=== PATIENT | female | born 1965 | race Asian ===

== ENCOUNTER 2018-03-15 17:51 | Emergency (ER) | payer SELFPAY ==
[~2018-03-15] VITALS: Ht 160 cm; Wt 64.4 kg
[2018-03-15] MEDS ORDERED: IBUPROFEN 600 MG TABLET PO ONE (19:00)
[2018-03-15] MEDS ORDERED: IBUPROFEN 600 MG TABLET ONE (19:04)
--- NOTE | 2018-03-15 20:04 | NUR ---
Patient discharged to home in stable conditon. Written and verbal after care instructions given. Patient verbalizes understanding of instructions. Pt ambulated out of ER in steady gait accompanied by children. All belongings with pt. VSS. No acute distress noted.
[2018-03-15 20:05] VITALS: BP 138/66
== END 2018-03-15 20:05 | disposition home or self-care (01) ==
LOC: ER 17:55
DX: S00.83XA Contusion of other part of head, initial encounter (principal); S16.1XXA Strain of muscle, fascia and tendon at neck level, initial encounter; S29.9XXA Unspecified injury of thorax, initial encounter; I10 Essential (primary) hypertension; V43.52XA Car driver injured in collision with other type car in traffic accident, initial encounter; Y93.89 Activity, other specified; Y92.410 Unspecified street and highway as the place of occurrence of the external cause; Y99.8 Other external cause status
CPT/HCPCS: 70450; 99284; A4663